=== PATIENT | male | born 1985 | race Caucasian/White ===

== ENCOUNTER 2021-07-28 14:10 | Emergency (ER) | payer OTHER ==
[~2021-07-28 14:10] MED LIST: BENADRYL25 MG PO; BENTYL 20MG TAB20 MG PO; GLIPIZIDE5 MG PO; JANUVIA 50 MG T50 MG PO; TORADOL 10 MG T10 MG PO; ZANTAC 150 MG150 MG PO; ZOFRAN4 MG PO
[2021-07-28 16:38] LABS: HEMOGLOBIN 16.1 gm/dl (14.0-17.5); RED BLOOD COUNT 5.49 M/UL (4.20-5.50); WHITE BLOOD COUNT 6.1 K/UL (4.5-11.0)
[2021-07-28 16:47] LABS: BUN/CREATININE RATIO 15 (0-10)
[2021-07-28] MEDS ORDERED: AUGMENTIN 875-1 EACH PO (18:15)
== END 2021-07-28 18:00 | disposition home or self-care (01) ==
LOC: ER1 14:10
PROVIDERS: Nurse Practitioner
DX: K04.7 Periapical abscess without sinus (principal); M27.2 Inflammatory conditions of jaws
CPT/HCPCS: 70487; 80048; 81001; 85025; 85652; 86140; 87040; 96374; 99284; J0295; Q9967